=== PATIENT | male | born 1935 | race Caucasian/White ===

== ENCOUNTER 2017-12-29 11:24 | Emergency (ER) | payer MEDICARE, BC ==
[2017-12-29] MEDS ORDERED: 0.9 % SODIUM CHLORIDE 1,000 ML BAG IV ONE (11:48)
--- NOTE | 2017-12-29 11:51 | Emergency Department Record ---
History of Present Illness - General Chief Complaint: Back Pain/Injury Stated Complaint: BACK PAIN Time Seen by Provider: 12/29/17 11:43 Source: Patient, Family Mode of Arrival: Ambulatory Limitations: No limitations - History of Present Illness Initial Comments: pt has r flank pain and thinks he has a kidney infection. he fell 2 weeks ago and hurt his back. he had reportedly neg back xrays. he also has a cough MD Complaint: Back pain, Fall Onset/Timin -: Week(s) Place: Home Severity: Moderate Severity scale (1-10): 8 Quality: Aching Improves With: None Worsens With: Movement Associated Symptoms: Cough, Nausea/vomiting Treatments Prior to Arrival: Acetaminophen - Related Data Home Medications Medication Instructions Recorded Confirmed Last Taken Aspirin 81 mg PO DAILY 12/29/17 12/29/17 1 Day Ago ~12/28/17 Carbidopa/Levodopa/Entacapone 1 each PO ASDIR 12/29/17 12/29/17 1 Day Ago [Stalevo 100 Tablet] ~12/28/17 Ezetimibe [Zetia] 10 mg PO DAILY 12/29/17 12/29/17 1 Day Ago ~12/28/17 Flaxseed Oil 1,000 mg PO 12/29/17 1 Day Ago ~12/28/17 Fluoxetine HCl [Prozac] 20 mg PO DAILY 12/29/17 12/29/17 1 Day Ago ~12/28/17 Lisinopril 2.5 mg PO DAILY 12/29/17 12/29/17 1 Day Ago ~12/28/17 Metoprolol Succinate [Toprol Xl] 25 mg PO DAILY 12/29/17 12/29/17 1 Day Ago ~12/28/17 Multivitamin [Multi-Vitamin Daily] 1 each PO DAILY 12/29/17 12/29/17 1 Day Ago ~12/28/17 Potassium Chloride [Klor-Con 10] 10 meq PO DAILY 12/29/17 12/29/17 1 Day Ago ~12/28/17 Previous Rx's Medication Instructions Recorded Amoxicillin 500Mg Capsule [Amoxil] 500 mg PO TID #30 tab 12/29/17 Allergies Allergy/AdvReac Type Severity Reaction Status Date / Time No Known Drug Allergies Allergy Verified 12/29/17 11:37 Travel Screening - Travel/Exposure Within Last 30 Days Have you traveled within the last 30 days?: No - Travel/Exposure Within Last Year Have you traveled outside the [place] in the last year?: No - Additonal Travel Details Have you been exposed to anyone with a communicable illness?: No - Travel Symptoms Symptom Screening: None Review of Systems Reviewed: No additional complaints except as noted below Constitutional: Reports: As per HPI. Denies: Chills, Fever, Malaise, Night sweats, Weakness, Weight change Eyes: Reports: As per HPI. Denies: Eye discharge, Eye pain, Photophobia, Vision change ENT: Reports: As per HPI. Denies: Congestion, Dental pain, Ear pain, Epistaxis , Hearing loss, Throat pain Respiratory: Reports: As per HPI. Denies: Cough, Dyspnea, Hemoptysis, Stridor, Wheezes Cardiovascular: Reports: As per HPI. Denies: Arrhythmia, Chest pain, Dyspnea on exertion, Edema, Murmurs, Orthopnea, Palpitations, Paroxysmal nocturnal dyspnea, Rheumatic Fever, Syncope Endocrine: Reports: As per HPI. Denies: Fatigue, Heat or cold intolerance, Polydipsia, Polyuria Gastrointestinal: Reports: As per HPI. Denies: Abdominal pain, Constipation, Diarrhea, Hematemesis, Hematochezia, Melena, Nausea, Vomiting Genitourinary: Reports: As per HPI. Denies: Dysuria, Frequency, Hematuria, Incontinence, Retention, Testicular pain, Testicular mass, Urgency Musculoskeletal: Reports: As per HPI. Denies: Arthralgia, Back pain, Gout, Joint swelling, Myalgia, Neck pain Skin: Reports: As per HPI. Denies: Bruising, Change in color, Change in hair/ nails, Lesions, Pruritus, Rash Neurological: Reports: As per HPI. Denies: Abnormal gait, Confusion, Headache, Numbness, Paresthesias, Seizure, Tingling, Tremors, Vertigo, Weakness Psychiatric: Reports: As per HPI. Denies: Anxiety, Auditory hallucinations, Depression, Homicidal thoughts, Suicidal thoughts, Visual hallucinations Hematological/Lymphatic: Reports: As per HPI. 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 negative: External canal tenderness Nasal Exam: Normal inspection. negative: Discharge, Sinus tenderness Mouth exam: Normal external inspection, Tongue normal Teeth exam: Normal inspection. negative: Dental caries Throat exam: Normal inspection. negative: Tonsillar erythema, Tonsillar exudate - Neck Neck exam: Normal inspection, Full ROM. negative: Tenderness - Respiratory Respiratory exam: Normal lung sounds bilaterally. negative: Respiratory distress - Cardiovascular Cardiovascular Exam: Regular rate, Normal rhythm, Normal heart sounds - GI/Abdominal GI/Abdominal exam: Soft, Normal bowel sounds. negative: Tenderness - Rectal Rectal exam: Deferred - exam: Deferred - Extremities Extremities exam: Normal inspection, Full ROM, Normal capillary refill. negative: Tenderness - Back Back exam: Reports: CVA tenderness (R), Full ROM. Denies: Muscle spasm, Rash noted, Tenderness - Neurological Neurological exam: Alert, CN II-XII intact, Normal gait, Oriented X3 - Psychiatric Psychiatric exam: Normal affect, Normal mood - Skin Skin exam: Dry, Intact, Normal color, Warm Course Vital Signs 12/29/17 11:26 Temperature 98.2 F Pulse Rate 61 Respiratory 20 Rate Blood Pressure 117/55 Pulse Ox 94 L Medical Decision Making - Lab Data Result diagrams: 12/29/17 11:55 12/29/17 11:55 Disposition Disposition: Discharge Clinical Impression: Renal cyst, Pneumonitis Cholelithiasis Qualifiers: Cholelithiasis location: gallbladder Cholecystitis presence: without cholecystitis Biliary obstruction: without biliary obstruction Qualified Code(s) : K80.20 - Calculus of gallbladder without cholecystitis without obstruction Disposition: Home, Self-Care Condition: (1) Good Instructions: Kidney Cyst (ED), Gallstones (ED), Pneumonitis (ED) Additional Instructions: follow up with urologist and surgeon. return sooner if worse Prescriptions: Amoxicillin 500Mg Capsule [Amoxil] 500 mg PO TID #30 tab Referrals: AMOS CHO M.D. [MEDICAL DOCTOR] - Puneet Amaya [DOCTOR OF OSTEOPATH] - [facility] Specialty Clinics [Provider Group] Forms: Patient Portal Access Quality - Quality Measures Quality Measures: N/A - Blood Pressure Screening Does Patient Have Any of the Following: No Blood Pressure Classification: Normal BP Reading Systolic Measurement: 117 Diastolic Measurement: 55 Screening for High Blood Pressure: < Normal BP, F/U Not Required > [G8783]
[2017-12-29] MEDS ORDERED: ONDANSETRON HCL IV 4 MG/2 ML VIAL IVP ONE (12:02)
[2017-12-29 12:04] LABS: BASO % 0.1 % (0-6); EOS % 0.6 % (0-6); GRAN % 70.6 % (47-80); HEMATOCRIT 39.2 % (42.0-52.0); HEMOGLOBIN 12.9 gm/dl (14.0-18.0); MEAN CELL VOLUME 99.5 fl (81-97); MEAN CORPUSCULAR HEMOGLOBIN 32.7 pg (27-33); MEAN CORPUSCULAR HGB CONC 32.9 g/dl (32-36); MEAN PLATELET VOLUME 9.5 fl (7.4-10.4); MONO % 6.7 % (0-9); PLATELET COUNT 220 K/uL (130-400); RED BLOOD COUNT 3.94 M/uL (4.40-5.70); RED CELL DISTRIBUTION WIDTH 12.2 % (11.5-14.5); WHITE BLOOD COUNT W/O DIFF 13.4 K/uL (4.2-12.2)
[2017-12-29 12:12] LABS: BLOOD UREA NITROGEN 18 mg/dL (8-23); CREATININE 0.5 mg/dL (0.7-1.2); EST GLOMERULAR FILTRATION RATE > 60 mL/min
[2017-12-29 12:13] LABS: TOTAL PROTEIN 7.3 g/dL (6.6-8.7)
[2017-12-29 12:15] LABS: GLUCOSE,RANDOM 111 mg/dL (74-109)
[2017-12-29 12:18] LABS: ALB/GLOB RATIO 1.1 (1.1-1.8); ALBUMIN 3.9 g/dL (4.0-5.0); ALKALINE PHOSPHATASE 58 U/L (40-129); ALT/SGPT < 5 U/L (<41); AST/SGOT 24 U/L (10.0-50.0)
[2017-12-29 13:52] LABS: URINE APPEARANCE CLEAR; URINE BILIRUBIN NEGATIVE (NEGATIVE); URINE BLOOD NEGATIVE (NEGATIVE); URINE KETONE TRACE (NEGATIVE); URINE LEUKOCYTE ESTERASE NEGATIVE (NEGATIVE); URINE NITRITE NEGATIVE (NEGATIVE)
[2017-12-29 14:04] LABS: URINE COLOR ORANGE; URINE EPITHELIAL CELLS 0 - 2 (FEW); URINE MUCUS LIGHT; URINE RBC 0 - 2 (NONE SEEN); URINE WBC 0 - 2 (0-2/hpf)
[2017-12-29] MEDS ORDERED: HYDROCODONE/APAP 5/325MG TABLET PO ONE (14:36)
--- NOTE | 2017-12-29 14:44 | Emergency Department Record ---
History of Present Illness - General Chief Complaint: Back Pain/Injury Stated Complaint: BACK PAIN Time Seen by Provider: 12/29/17 11:43 Source: Patient, Family Limitations: No limitations - History of Present Illness Onset/Timin -: Week(s) Place: Home Severity: Moderate Severity scale (1-10): 8 Quality: Aching Improves With: None Worsens With: Movement Associated Symptoms: Cough, Nausea/vomiting Treatments Prior to Arrival: Acetaminophen - Related Data Home Medications Medication Instructions Recorded Confirmed Last Taken Aspirin 81 mg PO DAILY 12/29/17 12/29/17 1 Day Ago ~12/28/17 Carbidopa/Levodopa/Entacapone 1 each PO ASDIR 12/29/17 12/29/17 1 Day Ago [Stalevo 100 Tablet] ~12/28/17 Ezetimibe [Zetia] 10 mg PO DAILY 12/29/17 12/29/17 1 Day Ago ~12/28/17 Flaxseed Oil 1,000 mg PO 12/29/17 1 Day Ago ~12/28/17 Fluoxetine HCl [Prozac] 20 mg PO DAILY 12/29/17 12/29/17 1 Day Ago ~12/28/17 Lisinopril 2.5 mg PO DAILY 12/29/17 12/29/17 1 Day Ago ~12/28/17 Metoprolol Succinate [Toprol Xl] 25 mg PO DAILY 12/29/17 12/29/17 1 Day Ago ~12/28/17 Multivitamin [Multi-Vitamin Daily] 1 each PO DAILY 12/29/17 12/29/17 1 Day Ago ~12/28/17 Potassium Chloride [Klor-Con 10] 10 meq PO DAILY 12/29/17 12/29/17 1 Day Ago ~12/28/17 Previous Rx's Medication Instructions Recorded Amoxicillin 500Mg Capsule [Amoxil] 500 mg PO TID #30 tab 12/29/17 Hydrocodone/Acetaminophen [Schriever 0.5 - 1 tab PO TID PRN #7 tab 12/29/17 5mg/325mg] Allergies Allergy/AdvReac Type Severity Reaction Status Date / Time No Known Drug Allergies Allergy Verified 12/29/17 11:37 Travel Screening - Travel/Exposure Within Last 30 Days Have you traveled within the last 30 days?: No - Travel/Exposure Within Last Year Have you traveled outside the [place] in the last year?: No - Additonal Travel Details Have you been exposed to anyone with a communicable illness?: No - Travel Symptoms Symptom Screening: None Review of Systems Constitutional: Reports: As per HPI. Denies: Chills, Fever, Malaise, Night sweats, Weakness, Weight change Eyes: Reports: As per HPI. Denies: Eye discharge, Eye pain, Photophobia, Vision change ENT: Reports: As per HPI. Denies: Congestion, Dental pain, Ear pain, Epistaxis , Hearing loss, Throat pain Respiratory: Reports: As per HPI. Denies: Cough, Dyspnea, Hemoptysis, Stridor, Wheezes Cardiovascular: Reports: As per HPI. Denies: Arrhythmia, Chest pain, Dyspnea on exertion, Edema, Murmurs, Orthopnea, Palpitations, Paroxysmal nocturnal dyspnea, Rheumatic Fever, Syncope Endocrine: Reports: As per HPI. Denies: Fatigue, Heat or cold intolerance, Polydipsia, Polyuria Gastrointestinal: Reports: As per HPI. Denies: Abdominal pain, Constipation, Diarrhea, Hematemesis, Hematochezia, Melena, Nausea, Vomiting Genitourinary: Reports: As per HPI. Denies: Dysuria, Frequency, Hematuria, Incontinence, Retention, Testicular pain, Testicular mass, Urgency Musculoskeletal: Reports: As per HPI. Denies: Arthralgia, Back pain, Gout, Joint swelling, Myalgia, Neck pain Skin: Reports: As per HPI. Denies: Bruising, Change in color, Change in hair/ nails, Lesions, Pruritus, Rash Neurological: Reports: As per HPI. Denies: Abnormal gait, Confusion, Headache, Numbness, Paresthesias, Seizure, Tingling, Tremors, Vertigo, Weakness Psychiatric: Reports: As per HPI. Denies: Anxiety, Auditory hallucinations, Depression, Homicidal thoughts, Suicidal thoughts, Visual hallucinations Hematological/Lymphatic: Reports: As per HPI. 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) - PSYCH Hx Anxiety: Yes (per ) Hx Depression: Yes - HEMATOLOGY/ONCOLOGY Hx Hematology/Oncology Disorders: No Family Medical History Any Significant Family History?: Yes Physical Exam - General Limitations: No limitations Course Vital Signs 12/29/17 12/29/17 11:26 13:21 Temperature 98.2 F Pulse Rate 61 Pulse Rate [ 63 Pulse Ox Probe] Respiratory 20 17 Rate Blood Pressure 117/55 Blood Pressure 107/58 [Left Arm] Pulse Ox 94 L 96 Medical Decision Making - Lab Data Result diagrams: 12/29/17 11:55 12/29/17 11:55 Lab Results 12/29/17 12/29/17 12/29/17 Range/Units 11:55 11:55 11:55 WBC 13.4 H (4.2-12.2) K/uL RBC 3.94 L (4.40-5.70) M/uL Hgb 12.9 L (14.0-18.0) gm/dl Hct 39.2 L (42.0-52.0) % MCV 99.5 H (81-97) fl MCH 32.7 (27-33) pg MCHC 32.9 (32-36) g/dl RDW 12.2 (11.5-14.5) % Plt Count 220 (130-400) K/uL MPV 9.5 (7.4-10.4) fl Gran % 70.6 (47-80) % Lymphocytes % 22.0 (16-45) % Monocytes % 6.7 (0-9) % Eosinophils % 0.6 (0-6) % Basophils % 0.1 (0-6) % Sodium 138 (136-145) mmol/L Potassium 4.4 (3.4-4.5) mmol/L Chloride 97 L (98-107) mmol/L Carbon Dioxide 31.0 H (22-29) mmol/L Anion Gap 10.0 (7-16) BUN 18 (8-23) mg/dL Creatinine 0.5 L (0.7-1.2) mg/dL Estimated GFR > 60 mL/min Random Glucose 111 H (74-109) mg/dL Calcium 8.7 L (8.8-10.2) mg/dL Total Bilirubin 0.90 (0.2-1.0) mg/dL AST 24 (10.0-50.0) U/L ALT < 5 (<41) U/L Alkaline Phosphatase 58 (40-129) U/L NT-Pro-B Natriuret Pep 1448.00 H (<450) pg/mL Total Protein 7.3 (6.6-8.7) g/dL Albumin 3.9 L (4.0-5.0) g/dL Globulin 3.4 (1.4-4.8) gm/dL Albumin/Globulin Ratio 1.1 (1.1-1.8) Urine Color Urine Appearance Urine pH (5.0-8.0) Ur Specific [place] (1.002-1.030) Urine Protein (NEGATIVE) Urine Glucose (UA) (NEGATIVE) Urine Ketones (NEGATIVE) Urine Blood (NEGATIVE) Urine Nitrite (NEGATIVE) Urine Bilirubin (NEGATIVE) Urine Urobilinogen (0.20 - 1.00) E.U./dL Ur Leukocyte Esterase (NEGATIVE) Urine RBC (NONE SEEN) Urine WBC (0-2/hpf) Ur Epithelial Cells (FEW) Urine Mucus 12/29/17 Range/Units 13:50 WBC (4.2-12.2) K/uL RBC (4.40-5.70) M/uL Hgb (14.0-18.0) gm/dl Hct (42.0-52.0) % MCV (81-97) fl MCH (27-33) pg MCHC (32-36) g/dl RDW (11.5-14.5) % Plt Count (130-400) K/uL MPV (7.4-10.4) fl Gran % (47-80) % Lymphocytes % (16-45) % Monocytes % (0-9) % Eosinophils % (0-6) % Basophils % (0-6) % Sodium (136-145) mmol/L Potassium (3.4-4.5) mmol/L Chloride (98-107) mmol/L Carbon Dioxide (22-29) mmol/L Anion Gap (7-16) BUN (8-23) mg/dL Creatinine (0.7-1.2) mg/dL Estimated GFR mL/min Random Glucose (74-109) mg/dL Calcium (8.8-10.2) mg/dL Total Bilirubin (0.2-1.0) mg/dL AST (10.0-50.0) U/L ALT (<41) U/L Alkaline Phosphatase (40-129) U/L NT-Pro-B Natriuret Pep (<450) pg/mL Total Protein (6.6-8.7) g/dL Albumin (4.0-5.0) g/dL Globulin (1.4-4.8) gm/dL Albumin/Globulin Ratio (1.1-1.8) Urine Color [place] H Urine Appearance Clear Urine pH 6.0 (5.0-8.0) Ur Specific [place] 1.020 (1.002-1.030) Urine Protein 30 mg/dl H (NEGATIVE) Urine Glucose (UA) 100 mg/dl H (NEGATIVE) Urine Ketones Trace H (NEGATIVE) Urine Blood Negative (NEGATIVE) Urine Nitrite Negative (NEGATIVE) Urine Bilirubin Negative (NEGATIVE) Urine Urobilinogen 1.0 (0.20 - 1.00) E.U./dL Ur Leukocyte Esterase Negative (NEGATIVE) Urine RBC 0 - 2 (NONE SEEN) Urine WBC 0 - 2 (0-2/hpf) Ur Epithelial Cells 0 - 2 (FEW) Urine Mucus Light Disposition Disposition: Discharge Clinical Impression: Renal cyst, Pneumonitis Cholelithiasis Qualifiers: Cholelithiasis location: gallbladder Cholecystitis presence: without cholecystitis Biliary obstruction: without biliary obstruction Qualified Code(s) : K80.20 - Calculus of gallbladder without cholecystitis without obstruction Disposition: Home, Self-Care Condition: (1) Good Instructions: Pneumonitis (ED), Gallstones (ED), Kidney Cyst (ED) Additional Instructions: follow up with urologist and surgeon. return sooner if worse Prescriptions: Amoxicillin 500Mg Capsule [Amoxil] 500 mg PO TID #30 tab Hydrocodone/Acetaminophen [Schriever 5mg/325mg] 0.5 - 1 tab PO TID PRN #7 tab PRN Reason: Pain - General Referrals: [facility] Specialty Clinics [Provider Group] Puneet Amaya [DOCTOR OF OSTEOPATH] - AMOS CHO M.D. [MEDICAL DOCTOR] - Forms: Patient Portal Access Quality - Quality Measures Quality Measures: N/A - Blood Pressure Screening Does Patient Have Any of the Following: No Blood Pressure Classification: Normal BP Reading Systolic Measurement: 117 Diastolic Measurement: 55 Screening for High Blood Pressure: < Normal BP, F/U Not Required > [G1206]
--- NOTE | 2017-12-30 08:42 | CT SCAN REPORT ---
EXAM: CT OF THE ABDOMEN AND PELVIS WITHOUT CONTRAST HISTORY: RIGHT LOWER QUADRANT PAIN. TECHNIQUE: Sequential axial images were obtained from the diaphragms through the ischiorectal fossa without intravenous or oral contrast administration. FINDINGS: There are ground glass opacities at both lung bases. There is cardiomegaly without pericardial effusion. There is cholelithiasis. No ductal dilatation. There is a large cyst in the inferior pole of the right kidney measuring 10.8 cm x 10.8 cm. No obstructive uropathy. There are nonobstructing calculi in the left kidney. The adrenal glands are normal in size. The small and large bowel appears normal. The appendix is visualized and appears normal. There is colonic diverticulosis. No evidence of diverticulitis. There is calcification within the prostate gland. The urinary bladder appears grossly unremarkable. The osseous structures are normal. IMPRESSION: 1. MINIMAL GROUND GLASS AIR SPACE OPACITIES IN BOTH LUNG BASES. 2. LARGE EXOPHYTIC CYST IN THE INFERIOR POLE OF THE RIGHT KIDNEY MEASURING 10.8 CM X 10.8 CM. 3. THE APPENDIX IS WELL VISUALIZED AND APPEARS NORMAL. CHOLELITHIASIS WITHOUT DUCTAL DILATATION. JOB NUMBER: [id number] [facility]
--- NOTE | 2017-12-30 08:45 | RADIOLOGY REPORT ---
EXAM: CHEST, TWO VIEWS HISTORY: DIFFICULTY BREATHING. TECHNIQUE: Frontal and lateral views of the chest were performed. FINDINGS: Left sided pacing device. Cardiomegaly. Minimal ground glass opacities in both lung bases. IMPRESSION: BILATERAL LOWER LOBE GROUND GLASS AIR SPACE OPACITIES. JOB NUMBER: [id number] [facility]
== END 2017-12-29 15:04 | disposition home or self-care (01) ==
LOC: ER 11:24
DX: J18.9 Pneumonia, unspecified organism (principal); N28.1 Cyst of kidney, acquired; R11.2 Nausea with vomiting, unspecified; R06.00 Dyspnea, unspecified; J44.9 Chronic obstructive pulmonary disease, unspecified; I25.2 Old myocardial infarction; G20 Parkinson's disease; Z95.810 Presence of automatic (implantable) cardiac defibrillator; Z87.891 Personal history of nicotine dependence; Z91.81 History of falling
CPT/HCPCS: 71046; 74176; 80053; 81001; 83880; 85025; 96361; 96374; 99284; J2405; J7030